=== PATIENT | male | born 1980 | race Caucasian/White ===

== ENCOUNTER 2018-02-03 14:45 | Emergency (ER) | payer MEDICAID ==
[~2018-02-03] VITALS: Ht 185.4 cm; Wt 71.7 kg
--- NOTE | 2018-02-03 15:10 | NUR ---
PATIENT WAS SEEN BY MD. SHOLA SCHWARZ.
[2018-02-03] MEDS ORDERED: FAMOTIDINE. 20 MG/2 ML VIAL IV ONE ×2 (15:15→15:28)
[2018-02-03 15:30] LABS: BASOPHILS # (AUTO) 0.1 K/uL (0.0-8.0); BASOPHILS % (AUTO) 0.9 % (0.0-2.0); EOSINOPHILS # (AUTO) 0.1 K/uL (0.0-0.7); EOSINOPHILS % (AUTO) 1.3 % (0.0-7.0); HEMATOCRIT 46.6 % (36.7-47.1); HEMOGLOBIN 15.8 g/dL (12.5-16.3); LYMPHOCYTES # (AUTO) 1.8 K/uL (20.0-40.0); LYMPHOCYTES % (AUTO) 29.2 % (20.5-51.5); MEAN CORPUSCULAR HEMOGLOBIN 30.7 uug (23.8-33.4); MEAN CORPUSCULAR HGB CONC 34 g/dL (32.5-36.3); MEAN CORPUSCULAR VOLUME 90.4 fL (73.0-96.2); MONOCYTES # (AUTO) 0.5 K/uL (2.0-10.0); MONOCYTES % (AUTO) 8.5 % (0.0-11.0); NEUTROPHILS # (AUTO) 3.7 K/uL (1.8-8.9); NEUTROPHILS % (AUTO) 60.1 % (38.5-71.5); PLATELET COUNT (AUTO) 255 K/uL (152-348); RED BLOOD CELL COUNT(AUTO) 5.15 MIL/uL (4.06-5.63); WHITE BLOOD COUNT (AUTO) 6.2 K/uL (3.6-10.2)
[2018-02-03 15:39] LABS: CREATININE 1.1 mg/dL (0.6-1.3); POTASSIUM 4.2 mmol/L (3.5-5.1)
[2018-02-03 15:45] LABS: BILIRUBIN,DIRECT 0.1 mg/dL (0.0-0.2); BILIRUBIN,TOTAL 0.7 mg/dL (0.2-1.0); TOTAL PROTEIN, SERUM 7.7 g/dL (6.4-8.2)
--- NOTE | 2018-02-03 15:45 | NUR ---
PATIENT IS AWAKE AND ALERT, AWAITING TEST RESULTS.
--- NOTE | 2018-02-03 16:20 | NUR ---
DC, RX AND FOLLOW UP INSTRUCTIONS GIVEN AND EXPLAINED TO PATIENT WHO STATES HE UNDERSTANDS ALL INSTRUCTIONS
--- NOTE | 2018-02-03 16:20 | NUR ---
IV removed. Catheter intact and site benign. Pressure and 4x4 gauze applied to site. No bleeding noted.
== END 2018-02-03 16:36 | disposition home or self-care (01) ==
LOC: ER 14:45
DX: K64.4 Residual hemorrhoidal skin tags (principal); K62.89 Other specified diseases of anus and rectum
CPT/HCPCS: 36415; 80048; 80076; 83690; 85025; 85730; 96374; 99284; A4663; J3490 ×2

== ENCOUNTER 2025-01-29 05:33 | Emergency (ER) | payer MEDICAID | END 2025-01-29 05:47 | disposition left against medical advice (07) | LOC: ER 05:38 | DX: K08.89 Other specified disorders of teeth and supporting structures (principal); Z53.21 Procedure and treatment not carried out due to patient leaving prior to being seen by health care provider ==